=== PATIENT | female | born 1960 | race Caucasian/White ===

== ENCOUNTER 2024-06-08 19:42 | Emergency (ER) | payer BC, MEDICARE ==
[~2024-06-08] VITALS: Ht 167.6 cm; Wt 99.9 kg
[2024-06-08] MEDS: NS 1,000 ML IV ONE (23:05)
[2024-06-08] MEDS: ONDANSETRON 4MG 2ML VIAL IV ONE (23:30)
[2024-06-09 00:38] LABS: BASO % 0.2 % (0.0-1.0); EOS % 0.1 % (0.0-3.0); HEMATOCRIT 43.2 % (36.0-47.0); HEMOGLOBIN 14.6 g/dl (12.0-15.5); LYMPH # 0.7 10^3/uL (1.5-5.0); LYMPH % 4.5 % (24.0-44.0); MEAN CORPUSCULAR HEMOGLOBIN 30.2 pg (27.0-33.0); MEAN CORPUSCULAR HGB CONC 33.8 g/dl (32.0-36.5); MEAN CORPUSCULAR VOLUME 89.3 fl (80.0-96.0); MONO # 0.6 10^3/uL (0.0-0.8); MONO % 3.7 % (2.0-8.0); NEUTROPHILS # 13.6 10^3/uL (1.5-8.5); NEUTROPHILS % 91.1 % (36.0-66.0); PLATELET COUNT, AUTOMATED 236 10^3/uL (150-450); RED BLOOD COUNT 4.84 10^6/uL (4.00-5.40); WHITE BLOOD COUNT 14.9 10^3/uL (4.0-10.0)
[2024-06-09 01:45] VITALS: BP 124/88; TEMP 98.8; O2SAT 98
== END 2024-06-09 01:50 | disposition home or self-care (01) ==
LOC: M ED 19:42
DX: R33.9 Retention of urine, unspecified (principal); C67.9 Malignant neoplasm of bladder, unspecified
CPT/HCPCS: 51702; 80047; 81001; 82365; 85025; 87086; 96361; 96374; 99284; J2405